=== PATIENT | female | born 1950 | race Caucasian/White ===

== ENCOUNTER → 2016-11-29 | Emergency (ER) | payer MEDICARE, OTHER ==
[~2016-11-29] VITALS: Ht 162.6 cm; Wt 104.5 kg
[~2016-11-29] MED LIST: ALDACTAZIDE 251 EACH PO; ALPRAZOLAM0.5 MG PO; ASPIRIN EC81 MG PO; BUPROPION XL300 MG PO; CALCIUM 500 +1 EAC2 PO; CELEBREX200 MG PO; CEPHALEXIN500 MG PO; COMPAZINE25 MG PR; COUMADIN3 MG PO; CYCLOBENZAPRINE10 MG PO; DITROPAN XL10 MG PO; EPIPEN 2-P0.3 MG/0.3 IM; FLEXERIL10 MG PO; HEPARIN SO5000 UNIT1 SUB-Q; HYDROCODON-ACE1 EA11 PO; IBUPROFEN800 MG PO; KONDREMUL2.5 ML/5 M PO; KRISTALOSE20 GM PO; LACTULOSE10 GM/15 M PO; LAMICTAL100 MG PO; LEVOTHROID75 MCG PO; LEVOTHYROXINE300 MCG PO; METOPROLOL SUCC25 MG PO; MIRALAX17 GM PO; MONTELUKAST SOD10 MG PO; MULTI VITAMIN1 EACH PO; NEURONTIN300 MG PO; NORCO 10-325 T1 EACH PO; NORCO 5-325 TA1 EACH PO; NORCO 7.5-3251 EACH PO; PANTOPRAZOLE SO40 MG PO; PAXIL20 MG PO; PERCOCET 7.5-31 EACH PO; PRAVACHOL40 MG PO; PROAIR HFA8.5 GM IH; SENNA S TABLET1 EA PO; SIMVASTATIN40 MG PO; SINGULAIR10 MG PO; SYNTHROID75 MCG PO; TOPAMAX50 MG PO; TOPIRAMATE50 MG PO; VALIUM5 MG PO; VERAPAMIL ER240 M1 PO; VERAPAMIL ER240 MG PO; VERAPAMIL HCL120 MG PO; WARFARIN SODIU7.5 MG PO; WARFARIN SODIUM1 MG PO; WARFARIN SODIUM5 MG PO; [UNRECOGNIZED DRUG - SUPPLY]
--- NOTE | 2016-11-29 21:55 | EKG ---
[facility] [address] [facility] [place] [address] Signed Normal sinus rhythm Normal ECG When compared with ECG of 15-DEC-2015 14:11, No significant change was found Confirmed by GERMANIA DUARTE MD ([id number]) on 11/29/2016 9:55:41 PM Electronically Signed By: GERMANIA DUARTE MD 11/29/16 2155 PATIENT NAME: CALEB VASQUEZ Electrocardiogram DATE OF : 52 PHYSICIAN: GERMANIA DUARTE MD REPORT #: [id number] REPORT IS CONFIDENTIAL AND NOT TO BE RELEASED WITHOUT AUTHORIZATION
== END ==
LOC: ED 11:48
DX: R44.1 Visual hallucinations (principal); R41.0 Disorientation, unspecified; I25.2 Old myocardial infarction; Z86.73 Personal history of transient ischemic attack (TIA), and cerebral infarction without residual deficits; Z96.652 Presence of left artificial knee joint; Z90.710 Acquired absence of both cervix and uterus; Z90.49 Acquired absence of other specified parts of digestive tract; Z90.89 Acquired absence of other organs; Z88.5 Allergy status to narcotic agent; Z91.038 Other insect allergy status; Z91.048 Other nonmedicinal substance allergy status; Z79.899 Other long term (current) drug therapy; Z79.01 Long term (current) use of anticoagulants
CPT/HCPCS: 80053; 81001; 84484; 85025; 93005; 93010; 96360; 99284; J7030

== ENCOUNTER 2017-01-07 12:25 | Emergency (ER) | payer MEDICARE, OTHER, MEDICAID ==
[~2017-01-07] VITALS: Ht 162.6 cm; Wt 102.1 kg
--- NOTE | 2017-01-23 07:30 | EKG ---
[facility] [address] [facility] [place], [place] [address] Signed Normal sinus rhythm Inferior infarct , age undetermined Abnormal ECG When compared with ECG of 29-NOV-2016 12:49, Inferior infarct is now present Confirmed by SURAJ AGUILAR MD ([id number]) on 01/23/2017 7:30:08 AM Electronically Signed By: SURAJ AGUILAR MD 01/23/17 0730 PATIENT NAME: CALEB VASQUEZ Electrocardiogram DATE OF : 52 PHYSICIAN: SURAJ AGUILAR MD REPORT #: [id number] REPORT IS CONFIDENTIAL AND NOT TO BE RELEASED WITHOUT AUTHORIZATION
== END 2017-01-07 17:08 | disposition home or self-care (01) ==
LOC: ED 12:25
DX: F32.9 Major depressive disorder, single episode, unspecified (principal); I25.2 Old myocardial infarction; Z88.5 Allergy status to narcotic agent; Z91.038 Other insect allergy status; Z96.652 Presence of left artificial knee joint; Z90.710 Acquired absence of both cervix and uterus; Z86.73 Personal history of transient ischemic attack (TIA), and cerebral infarction without residual deficits; Z90.49 Acquired absence of other specified parts of digestive tract; Z98.890 Other specified postprocedural states; Z79.899 Other long term (current) drug therapy; Z79.01 Long term (current) use of anticoagulants
CPT/HCPCS: 70450; 70496; 70498; 71010; 80053; 85025; 85610; 85730; 93005; 93010; 99284; Q9967

== ENCOUNTER 2017-02-02 17:26 | Emergency (ER) | payer MEDICARE, OTHER, MEDICAID ==
[~2017-02-02] VITALS: Ht 162.6 cm; Wt 102.1 kg
--- NOTE | 2017-02-04 00:36 | EKG ---
[facility] [address] [facility] [place] [address] Signed Sinus bradycardia Otherwise normal ECG When compared with ECG of 07-JAN-2017 12:50, Criteria for Inferior infarct are no longer present Confirmed by GERMANIA DUARTE MD ([id number]) on 02/04/2017 12:36:39 AM Electronically Signed By: GERMANIA DUARTE MD 02/04/17 0036 PATIENT NAME: CALEB VASQUEZ Electrocardiogram DATE OF : 52 PHYSICIAN: GERMANIA DUARTE MD REPORT #: [id number] REPORT IS CONFIDENTIAL AND NOT TO BE RELEASED WITHOUT AUTHORIZATION
== END 2017-02-02 20:21 | disposition home or self-care (01) ==
LOC: ED 17:26
DX: R55 Syncope and collapse (principal); I25.2 Old myocardial infarction; Z86.73 Personal history of transient ischemic attack (TIA), and cerebral infarction without residual deficits; Z96.651 Presence of right artificial knee joint; Z90.710 Acquired absence of both cervix and uterus; Z98.890 Other specified postprocedural states; Z90.49 Acquired absence of other specified parts of digestive tract; Z88.5 Allergy status to narcotic agent; Z91.048 Other nonmedicinal substance allergy status; Z79.899 Other long term (current) drug therapy
CPT/HCPCS: 70450; 71020; 80053; 84484; 85025; 93005; 93010; 99284

== ENCOUNTER 2017-11-29 14:23 | Emergency (ER) | payer MEDICARE, OTHER, MEDICAID ==
[~2017-11-29] VITALS: Ht 162.6 cm; Wt 90.7 kg
[~2017-11-29 14:23] MED LIST changes: +IRBESARTAN75 MG PO
--- NOTE | 2017-11-29 22:06 | EKG ---
[facility] [address] [facility] [place] [address] Signed Normal sinus rhythm Left axis deviation Abnormal ECG When compared with ECG of 02-FEB-2017 18:07, Vent. rate has increased BY 29 BPM Confirmed by SURAJ AGUILAR MD ([id number]) on 11/29/2017 10:05:47 PM Electronically Signed By: SURAJ AGUILAR MD 11/29/17 2206 PATIENT NAME: CALEB VASQUEZ Electrocardiogram DATE OF : 52 PHYSICIAN: SURAJ AGUILAR MD REPORT #: [id number] REPORT IS CONFIDENTIAL AND NOT TO BE RELEASED WITHOUT AUTHORIZATION
== END 2017-11-29 17:18 | disposition home or self-care (01) ==
LOC: ED 14:23
DX: S09.90XA Unspecified injury of head, initial encounter (principal); S01.81XA Laceration without foreign body of other part of head, initial encounter; S16.1XXA Strain of muscle, fascia and tendon at neck level, initial encounter; Z88.5 Allergy status to narcotic agent; Z91.030 Bee allergy status; Z88.8 Allergy status to other drugs, medicaments and biological substances; Z79.899 Other long term (current) drug therapy; W01.0XXA Fall on same level from slipping, tripping and stumbling without subsequent striking against object, initial encounter
CPT/HCPCS: 70450; 70486; 72125; 80053; 84484; 85025; 85610; 93005; 93010; 99285

== ENCOUNTER 2018-10-22 18:09 | Emergency (ER) | payer MEDICARE, MEDICAID ==
[~2018-10-22] VITALS: Ht 160 cm; Wt 102.5 kg
[~2018-10-22 18:09] MED LIST changes: +WARFARIN SODIUM6 MG PO
[2018-10-22] MEDS ORDERED: WARFARIN SODIUM5 MG PO (18:22)
== END 2018-10-22 21:18 | disposition home or self-care (01) ==
LOC: ED 18:09
DX: G43.909 Migraine, unspecified, not intractable, without status migrainosus (principal); I25.2 Old myocardial infarction; Z86.73 Personal history of transient ischemic attack (TIA), and cerebral infarction without residual deficits; Z88.5 Allergy status to narcotic agent; Z91.048 Other nonmedicinal substance allergy status; Z91.030 Bee allergy status; Z79.01 Long term (current) use of anticoagulants; Z79.899 Other long term (current) drug therapy
CPT/HCPCS: 70450; 80053; 81001; 85025; 85651; 96361; 96374; 96375; 99284-25; J1200; J1885; J2765; J7030

== ENCOUNTER 2020-08-04 16:20 | Emergency (ER) | payer MEDICARE, OTHER, MEDICAID ==
[~2020-08-04] VITALS: Ht 160 cm; Wt 102.5 kg
[~2020-08-04 16:20] MED LIST changes: +AMITRIPTYLINE H25 MG PO; +ATORVASTATIN CA80 MG PO; +GABAPENTIN600 MG PO; +LAMOTRIGINE100 MG PO; +OXYCODONE HCL5 MG PO
[2020-08-04] MEDS ORDERED: HYDROCODON-ACE1 EA10 PO (19:43)
== END 2020-08-04 19:19 | disposition home or self-care (01) ==
LOC: ED 16:20
DX: R07.89 Other chest pain (principal); Z87.891 Personal history of nicotine dependence; Z88.5 Allergy status to narcotic agent; Z91.048 Other nonmedicinal substance allergy status; Z91.030 Bee allergy status; Z79.899 Other long term (current) drug therapy; Z79.01 Long term (current) use of anticoagulants
CPT/HCPCS: 71046; 99284-25